=== PATIENT | female | born 1985 | race Asian ===

== ENCOUNTER 2018-05-10 10:40 | Emergency (ER) | payer MEDICAID, OTHER ==
[~2018-05-10] VITALS: Ht 160 cm; Wt 59.1 kg
[2018-05-10] MEDS ORDERED: ASCO500 PO (10:50)
[2018-05-10] MEDS ORDERED: DIPH50 PO (10:50)
[2018-05-10] MEDS ORDERED: FOLI200T11 PO (10:50)
[2018-05-10] MEDS ORDERED: FAMOTIDINE 10 MG/ML 2 ML VIAL IVP ONE (11:45)
[2018-05-10] MEDS ORDERED: SODIUM CHLORIDE 0.9% 1,000 ML IV ONE ×2 (11:45→16:45)
[2018-05-10] MEDS ORDERED: DiphenhydrAMINE HCL 50 MG/ML VIAL IVP ONE ×2 (11:45→15:30)
[2018-05-10] MEDS ORDERED: MethylPREDNISolone SOD SUCC 125 MG/2 ML VIAL IVP ONE (11:45)
[2018-05-10 17:19] VITALS: BP 122/83
== END 2018-05-10 17:29 | disposition home or self-care (01) ==
LOC: EMS 10:41
DX: L50.0 Allergic urticaria (principal); Z79.899 Other long term (current) drug therapy
CPT/HCPCS: 96374; 96375; 96376; 99285; J1200; J2930; J3490; J7030

== ENCOUNTER 2023-04-10 00:23 | Emergency (ER) | payer OTHER ==
[~2023-04-10] VITALS: Ht 157.5 cm; Wt 59.5 kg
[~2023-04-10 00:23] MED LIST: ASCO500 PO; DIPH50 PO; FOLI200T11 PO
[2023-04-10 00:27] VITALS: TEMP 97.8
[2023-04-10] MEDS ORDERED: FAMOTIDINE 20 MG/2 ML VIAL IVP ONE (00:45)
[2023-04-10] MEDS ORDERED: MethylPREDNISolone SOD SUCC 125 MG/2 ML VIAL IVP ONE (00:45)
[2023-04-10] MEDS ORDERED: SODIUM CHLORIDE 0.9% 1,000 ML IV ONE (00:45)
[2023-04-10] MEDS ORDERED: EPINEPHrine 1:1,000 [1 MG/ML] VIAL IM ONE (00:45)
[2023-04-10] MEDS ORDERED: DiphenhydrAMINE HCL 50 MG/ML VIAL IVP ONE (00:45)
[2023-04-10 01:03] LABS: BASOPHILS % (AUTO) 0.4 % (0.0-2.0); EOSINOPHILS % (AUTO) 1.9 % (1.0-6.0); HEMOGLOBIN 14.5 g/dL (12.0-16.0); MEAN CORPUSCULAR HEMOGLOBIN 29.5 pg (26.0-34.0); MEAN CORPUSCULAR HGB CONC 33.3 G/dL (31.0-37.0); MEAN CORPUSCULAR VOLUME 89 fL (80-100); MONOCYTES # (AUTO) 0.8 K/uL (0.1-1.0); RED BLOOD CELL COUNT(AUTO) 4.92 MIL/uL (4.00-5.20)
[2023-04-10 01:06] LABS: HEMATOCRIT 43.6 % (36-46); LYMPHOCYTES # (AUTO) 7.3 K/uL (1.0-4.8); MONOCYTES % (AUTO) 6.5 % (2.0-9.0); NEUTROPHILS # (AUTO) 3.8 K/uL (1.8-7.7); NEUTROPHILS % (AUTO) 31.2 % (40.0-70.0); PLATELET COUNT (AUTO) 370 K/uL (150-450); RED CELL DISTRIBUTION WIDTH 13.7 % (11.5-14.5); WHITE BLOOD COUNT (AUTO) 12.2 K/uL (4.5-11.0)
[2023-04-10 01:13] LABS: ANION GAP 12 mmol/L (8-16); CALCIUM, TOTAL 9.1 mg/dL (8.8-10.5); CARBON DIOXIDE 24 mmol/L (22-29); CHLORIDE 100 mmol/L (98-107); CREATININE 0.64 mg/dL (0.60-1.30); GLOMERULAR FILTR. RATE CALC > 60 mL/min (>60); GLUCOSE,RANDOM 184 mg/dL (70-110); POTASSIUM 3.4 mmol/L (3.5-5.1); SODIUM SERUM 136 mmol/L (136-145); UREA NITROGEN, BLOOD 12 mg/dL (7-18)
[2023-04-10 01:21] LABS: ALANINE AMINOTRANSFERASE 15 U/L (12-78); ALBUMIN 3.6 g/dL (3.4-5.0); ALKALINE PHOSPHATASE 63 U/L (46-116); ASPARTATE AMINOTRANSFERASE 10 U/L (15-37); BILIRUBIN,TOTAL 0.3 mg/dL (0.1-1.0); CREATINE KINASE, TOTAL ONLY 71 U/L (26-192); TOTAL PROTEIN, SERUM 7.1 g/dL (6.4-8.2)
[2023-04-10 01:25] LABS: TROPONIN I-HIGH SENSITIVITY 4 ng/L (<51)
[2023-04-10 01:27] LABS: B-TYPE NATRIURETIC PEPTIDE 6 pg/mL (0-100)
[2023-04-10 01:41] LABS: RBC MORPHOLOGY COMMENT NORMAL RBC MORPH
[2023-04-10] MEDS ORDERED: EPIN0.3P3 IM (02:57)
[2023-04-10] MEDS ORDERED: PRED-554 PO (02:57)
[2023-04-10] MEDS ORDERED: DIPH-1243 PO (02:57)
[2023-04-10 06:36] VITALS: BP 104/67; PULSE 75; RESP 18
== END 2023-04-10 07:12 | disposition home or self-care (01) ==
LOC: EMS 00:24
DX: T78.2XXA Anaphylactic shock, unspecified, initial encounter (principal)
CPT/HCPCS: 99291; 96374; 71045; 96375; 96361; 80053; 82550; 83880; 84484; 84703; 85025; 36415; 93005; 96372; J1200; J0171; J2930; J7030; J3490

== ENCOUNTER → 2023-10-01 | Emergency (ER) | payer OTHER ==
[~2023-10-01] VITALS: Ht 157.5 cm; Wt 58.2 kg
[~2023-10-01] MED LIST changes: +DIPH-1243 PO; +DOXY-354 PO; +EPIN0.3P3 IM; +PRED-554 PO
[2023-10-01 08:50] VITALS: BP 141/70; PULSE 102; RESP 16; TEMP 98
[2023-10-01] MEDS: DOXYCYCLINE HYCLATE 100 MG TABLET PO ONE (10:15)
[2023-10-01] MEDS: PredniSONE 20 MG TABLET PO ONE (10:15)
== END | disposition home or self-care (01) ==
LOC: EMS 08:47
DX: S70.361A Insect bite (nonvenomous), right thigh, initial encounter (principal); S70.362A Insect bite (nonvenomous), left thigh, initial encounter; W57.XXXA Bitten or stung by nonvenomous insect and other nonvenomous arthropods, initial encounter; Y93.89 Activity, other specified; Y92.89 Other specified places as the place of occurrence of the external cause; Y99.8 Other external cause status
CPT/HCPCS: 99283; J7512

== ENCOUNTER 2024-07-03 03:25 | Emergency (ER) | payer OTHER ==
[~2024-07-03] VITALS: Ht 154.9 cm; Wt 54.5 kg
[2024-07-03 03:45] VITALS: TEMP 98.1
[2024-07-03 05:24] VITALS: BP 112/55; PULSE 79; RESP 16; O2SAT 100
[2024-07-03] MEDS ORDERED: DIPH-1164 PO (05:31)
== END 2024-07-03 05:47 | disposition home or self-care (01) ==
LOC: EMS 03:33
DX: S80.861A Insect bite (nonvenomous), right lower leg, initial encounter (principal); S80.862A Insect bite (nonvenomous), left lower leg, initial encounter; Z79.52 Long term (current) use of systemic steroids; W57.XXXA Bitten or stung by nonvenomous insect and other nonvenomous arthropods, initial encounter; Y93.89 Activity, other specified; Y92.89 Other specified places as the place of occurrence of the external cause; Y99.8 Other external cause status
CPT/HCPCS: 99282; Z7502